=== PATIENT | female | born 2000 | race Two or more races ===

== ENCOUNTER 2021-10-19 02:14 | Emergency (ER) | payer MEDICAID ==
[~2021-10-19] VITALS: Ht 175.3 cm; Wt 56.7 kg
[2021-10-19 02:31] VITALS: BP 128/78
== END 2021-10-19 02:47 | disposition home or self-care (01) ==
LOC: ER 02:23
DX: S60.452A Superficial foreign body of right middle finger, initial encounter (principal); Z60.2 Problems related to living alone; X58.XXXA Exposure to other specified factors, initial encounter; Y93.89 Activity, other specified; Y92.89 Other specified places as the place of occurrence of the external cause; Y99.8 Other external cause status

== ENCOUNTER 2022-01-08 13:24 | Emergency (ER) | payer MEDICAID ==
[~2022-01-08] VITALS: Ht 175.3 cm; Wt 56.7 kg
[2022-01-08 13:24] VITALS: BP 105/61
[2022-01-08] MEDS ORDERED: IBUPROFEN 600 MG TABLET PO ONE (14:30)
[2022-01-08] MEDS ORDERED: IBUPROFEN 600 MG TABLET ONE (14:36)
[2022-01-08] MEDS ORDERED: IBUP-1957 PO (15:18)
--- NOTE | 2022-01-08 15:22 | NUR ---
Patient discharged to home in stable condition. Written and verbal after care instructions given. Patient verbalizes understanding of instruction.
== END 2022-01-08 15:22 | disposition home or self-care (01) ==
LOC: ER 13:31
DX: S93.401A Sprain of unspecified ligament of right ankle, initial encounter (principal); M79.7 Fibromyalgia; Z60.2 Problems related to living alone; W08.XXXA Fall from other furniture, initial encounter; Y93.89 Activity, other specified; Y92.89 Other specified places as the place of occurrence of the external cause; Y99.8 Other external cause status
CPT/HCPCS: 73590-TC

== ENCOUNTER 2022-02-21 08:02 | Emergency (ER) | payer MEDICAID ==
[~2022-02-21] VITALS: Ht 175.3 cm; Wt 59.0 kg
[~2022-02-21 08:02] MED LIST: IBUP-1957 PO
--- NOTE | 2022-02-21 08:08 | NUR ---
BIBS C/O NAUSEA/VOMITING/HYPERVENTILATING X 2 DAYS LAST USED [facility] YESTERDAY. AWAITING MD ORDERS.
[2022-02-21] MEDS ORDERED: ONDANSETRON HCL/PF 4 MG/2 ML VIAL ONE (08:29)
[2022-02-21] MEDS ORDERED: IV NS 0.9% 1,000 ML BAG IV ONE (08:30)
[2022-02-21] MEDS ORDERED: ONDANSETRON HCL/PF 4 MG/2 ML VIAL IVP ONE (08:30)
--- NOTE | 2022-02-21 08:30 | NUR ---
INSERTED ANGOCATHETER G 20 ON RT AC BLOOD DROW AND SENT TO LAB
--- NOTE | 2022-02-21 08:34 | NUR ---
PT UNABLE TO PROVIDE URINE AT THIS TIME, URINE CUP PROVIDED TO PT.
--- NOTE | 2022-02-21 08:35 | NUR ---
SHEEBA ELLISON SENT TO LAB
[2022-02-21 08:48] LABS: BASOPHILS % (AUTO) 0.5 % (0.0-2.0); HEMATOCRIT 43 % (33-45); HEMOGLOBIN 14.3 g/dL (11.5-14.8); LYMPHOCYTES # (AUTO) 1.5 K/uL (0.8-4.8); LYMPHOCYTES % (AUTO) 16.7 % (20.0-44.0); MEAN CORPUSCULAR HGB CONC 34 g/dl (31.0-36.0); MEAN CORPUSCULAR VOLUME 89 fL (82-100); MONOCYTES # (AUTO) 0.3 K/uL (0.1-1.30); MONOCYTES % (AUTO) 3.9 % (2.0-12.0); NEUTROPHILS # (AUTO) 6.9 K/uL (1.8-8.9); NEUTROPHILS % (AUTO) 78.9 % (43.0-81.0); PLATELET COUNT (AUTO) 214 K/uL (150-450); RED BLOOD CELL COUNT(AUTO) 4.84 MIL/uL (4.0-5.2); WHITE BLOOD COUNT (AUTO) 8.8 K/uL (4.3-11.0)
[2022-02-21 08:58] LABS: CALCIUM, SERUM 9.3 mg/dL (8.5-10.1); CREATININE 0.9 mg/dL (0.6-1.3); POTASSIUM 3.2 mmol/L (3.5-5.1)
--- NOTE | 2022-02-21 09:00 | NUR ---
UA SENT TO LAB
[2022-02-21 09:04] LABS: ALBUMIN 4.7 g/dL (3.4-5.0); BILIRUBIN,DIRECT 0.3 mg/dL (0.0-0.2); BILIRUBIN,TOTAL 1.2 mg/dL (0.2-1.0); TOTAL PROTEIN, SERUM 8.3 g/dL (6.4-8.2)
[2022-02-21 09:16] LABS: THYROID STIMULATING HORMONE 3.02 uIU/mL (0.358-3.74)
[2022-02-21 09:26] LABS: MAGNESIUM 1.9 mg/dL (1.8-2.4)
[2022-02-21 09:49] LABS: BILIRUBIN,URINE NEGATIVE (NEGATIVE); COLOR,URINE YELLOW (YELLOW); LEUKOCYTE ESTERASE ,URINE NEGATIVE (NEGATIVE); NITRITE, URINE NEGATIVE (NEGATIVE); PH,URINE 6.5 (5.0-8.0); PROTEIN,URINE NEGATIVE (NEGATIVE); UGLUCOSE NEGATIVE (NEGATIVE); UROBILINOGEN,URINE 0.2 EU/dL (0.2)
[2022-02-21] MEDS ORDERED: CT SWABBABLE VALVE TRANS SET 1 EA INFUS.SET MC ONE (09:56)
[2022-02-21] MEDS ORDERED: IV NS 0.9% 250 ML IV ONE (09:56)
[2022-02-21] MEDS ORDERED: IOHEXOL-300 100 ML VIAL IV ONE (09:56)
--- NOTE | 2022-02-21 10:00 | NUR ---
RESTING AND ASLEEPY
[2022-02-21 10:03] LABS: BACTERIA,URINE Few /HPF (None Seen); RBC,URINE 0-2 /HPF (0-2); WBC,URINE 0-2 /HPF (0-3)
--- NOTE | 2022-02-21 11:00 | NUR ---
INF SWAP SENT TO LAB
[2022-02-21] MEDS ORDERED: LORAZEPAM INJ 2 MG/ML VIAL IV ONE (11:30)
[2022-02-21] MEDS ORDERED: METOCLOPRAMIDE HCL 10 MG/2 ML VIAL IV ONE (11:30)
[2022-02-21] MEDS ORDERED: METOCLOPRAMIDE HCL 10 MG/2 ML VIAL ONE (12:01)
[2022-02-21] MEDS ORDERED: LORAZEPAM INJ 2 MG/ML VIAL ONE (12:01)
--- NOTE | 2022-02-21 13:15 | NUR ---
DR. VACA SPOOK WITH PT RESPNDED TO TX plan to d/c home today with
--- NOTE | 2022-02-21 13:30 | NUR ---
IV removed. Catheter intact and site benign. Pressure and 4x4 applied to site. No bleeding noted.
[2022-02-21] MEDS ORDERED: METO-295 PO (13:34)
[2022-02-21] MEDS ORDERED: CHLO25CA22 PO (13:34)
--- NOTE | 2022-02-21 13:40 | NUR ---
Patient discharged to home in stable condition. Written and verbal after care instructions given. Patient verbalizes understanding of instruction.
[2022-02-21 13:56] VITALS: BP 106/51
== END 2022-02-21 13:57 | disposition home or self-care (01) ==
LOC: ER 08:04
DX: R10.30 Lower abdominal pain, unspecified (principal); R11.2 Nausea with vomiting, unspecified; R19.7 Diarrhea, unspecified; M79.7 Fibromyalgia; R91.1 Solitary pulmonary nodule; N20.0 Calculus of kidney; Z20.822 Contact with and (suspected) exposure to COVID-19
CPT/HCPCS: 99285; 74177; 96374; 71045; 96375; 96361; 87426; 85025; 80048; 83690; 80076; 83735; 84703; 36415; 84439; 84443; 80307; 81001; J2060; J2765; J2405; J7030; J7050; Q9967; C9803